=== PATIENT | female | born 1955 | race Caucasian/White ===

== ENCOUNTER 2020-09-14 09:23 | Day surgery (SDC) | payer MEDICARE, SELFPAY ==
[2020-07-30 08:50] VITALS: BMI 21.9
[2020-08-19 08:31] VITALS: BMI 21.9
--- NOTE | 2020-08-26 10:24 | EKG12_ITS ---
Test Reason : PREOP Blood Pressure : / mmHG Vent. Rate : 074 BPM Atrial Rate : 074 BPM P-R Int : 102 ms QRS Dur : 072 ms QT Int : 356 ms P-R-T Axes : 041 043 115 degrees QTc Int : 395 ms Sinus rhythm with short MI Nonspecific ST and T wave abnormality Abnormal ECG Confirmed by ABDULKADIR DEL RIO, COLT ([id number]), scientific publications editor NATALIO VALENZUELA ([id number]) on 08/30/2020 12:44:03 PM Referred By: Hao Grimaldo Confirmed By:COLT PANCHAL MD
[2020-08-26 11:40] LABS: Hematocrit 40.4 % (37-47); Hemoglobin 13.8 g/dL (12.0-15.0); Mean Corp Hgb Conc 34.2 g/dL (32-36); Mean Corpuscular Hgb 30.4 pg (27.0-32.0); Mean Platelet Vol. 8.9 fl (6.2-12.0); Platelet Count 403 K/mm3 (150-450); RBC Distribution Width CV 12.4 % (11.6-14.6); RBC Distribution Width SD 40.8 fl (35.1-43.9); Red Blood Count 4.54 M/mm3 (4.2-5.4); White Blood Count 6.5 K/mm3 (4.4-11.0)
[2020-08-26 12:23] LABS: Thyroid Stim Hormone (TSH) 2.11 uIU/mL (0.358-3.74)
[2020-08-26 13:11] LABS: Anion Gap 6 (5-15); BUN 8 mg/dL (7-18); BUN/Creat Ratio 9.6 RATIO (10-20); Calcium,Total 8.6 mg/dL (8.5-10.1); Chloride 96 mmol/L (98-107); Creatinine, Serum 0.84 mg/dL (0.55-1.02); EST Glomerular Filtration Rate 73 mL/min (>60); Est Glom Filt Rate - Afr Amer 88 mL/min (>60); Glucose 96 mg/dL (74-106); Potassium 4.3 mmol/L (3.5-5.1); Sodium Level 130 mmol/L (136-145)
[2020-09-14] VITALS (8 sets, daily range): BP systolic 84–117; BP diastolic 42–74; PULSE 68–86; RESP 16; TEMP 36.1–36.7; O2SAT 96–100; BMI 21.4
[2020-09-14] MEDS: Lactated Ringers 1,000 ML 100 ML IV (10:15)
--- NOTE | 2020-09-14 10:33 | PCM.HP.BLA ---
History and Physical Date of Admission: 09/14/20 [facility] Visit Reasons: UPDATE H & P SURGERY 09/02 Chief Complaint: Right inguinal hernia [employer] Consultant Required: No Is patient in pain?: No Allergies amoxicillin Adverse Reaction (Mild, Verified 08/19/20 08:31) Diarrhea Medications cholecalciferol (vitamin D3) 25 mcg (1,000 unit) capsule 25 mcg PO DAILY 07/30/20 [History Confirmed 08/19/20] levothyroxine 50 mcg tablet 50 mcg PO DAILY tab 07/30/20 [History Confirmed 08/19/20] sumatriptan succinate 25 mg tablet See Rx Instructions PO .COMPLEX PRN 07/30/20 [History Confirmed 08/19/20] PFSH Medical History Cervical dysplasia Hypothyroid Internal hemorrhoids without mention of complication Mitral valve disorder Osteoporosis Scoliosis Surgical History History of loop electrosurgical excision procedure (LEEP) of cervix Hx of colonoscopy Hx of tonsillectomy Family History Father Arthritis Bladder cancer Brother Arthritis Social History Smoking Status: Never smoker second hand exposure: No alcohol intake: current alcohol intake frequency: a few times a month substance use type: does not use caffeine: Yes what type of physical activity do you participate in: walking and yoga frequency: 3-4 times per week HPI HPI HPI: BEV MARLEY is a 65 F who presents to the office today for an update history and physical for an upcoming elective right inguinal hernia repair. Patient denies recent hospitalizations or illnesses. Patient denies pain currently in the right groin. She recently completed an upper/lower endoscopy with [facility] on 08/06/20. Findings included ascending colon polyp x 2 and stomach biopsy. Pathology demonstrated fragments of tubular adenoma and no diagnostic alteration of the stomach. H pylori negative. It was recommended the patient return in 4-6 months for a repeat colonoscopy secondary to the ascending polyp being very large. Patient denies abdominal pain. Her bowel habits have returned to normal. Patient denies previous abdominal surgeries. Patient's previous history per Dr. Grimaldo: BEV MARLEY is a 65 F who presents to the office today for surgical consultation regarding right inguinal hernia. Patient's primary care physician is Dr. Claude Hernandes and a written copy my surgical consult recommendations will return to him. Very pleasant 65-year-old lady. She is previously been evaluated a couple years ago for a right inguinal hernia. It was reducible at that time. Was asymptomatic. She was seen by . More recently the area has become more symptomatic. She has to lie down to help her reduce and sometimes she has to help manually reduce it. She does not recall any trauma. She otherwise is in good health. She makes comment that next week she will be having a combined upper and lower endoscopy done by [facility]. ROS General General: No weight change, appetite, fatigue, colon cancer, breast cancer or weakness HEENT HEENT: No difficulty swallowing, eye injury, eye surgery, swollen glands or hoarseness Endo Endocrine: Yes thyroid disease; No diabetes mellitus, thyroid cancer, Hair loss, heat intolerance or cold intolerance Skin Skin: No rash or changing moles Musc Musculoskeletal: Yes back problems; No arthritis, rheumatoid arthritis, gout or joint pain Cardio Cardiovascular: No murmur, pacemaker, heart disease, atrial fibrillation, high blood pressure, heart attack, heart stent, palpitations, shortness of breat with exertion or chest pain Additional Details: MVP Psych Psychiatric: No depression, anxiety or hearing voices Resp Respiratory: No shortness of breath, No sleep apnea, No cough, No COPD, No asthma, No emphysema and No wheezing Gastro Gastrointestinal: No abdominal pain, No nausea or vomiting, No diarrhea, No constipation, No blood in stool, No acid reflux, No hemorrhoids, No ulcers, No gallbladder problem and No black,tarry stools Chace Hematologic: No blood thinners, No blood disorders, No bleeding, No anemia and No blood clots Neuro Neurologic: No weakness Exam Const General: cooperative, healthy appearing, comfortable and no acute distress [facility] Head: normal to inspection and no palpable skull fracture Eyes General: appearance normal, both eyes and all related structures Neck Neck: normal visual inspection Neck mass: No Resp Effort & Inspection: normal respiratory effort Auscultation: clear to auscultation bilaterally Cardio Rate: regular rate Rhythm: regular rhythm GI Inspection: normal to inspection Palpation: soft and hernia (right inguinal hernia, reducible ) Auscultation: normal bowel sounds Skin General: no rashes or lesions noted Neuro General: no focal motor deficits and CN's II-XI intact bilaterally Extrem General: normal to inspection Psych Appearance: grossly normal Affect: normal affect Assessment and Plan Assessment and Plan (1) Inguinal hernia of right side without obstruction or gangrene: Status: Acute Plan - Kim BOURNE, PA-C: Dr. Grimaldo will plan to perform a classic Promise right inguinal hernia repair with mesh. Procedure details, risks and benefits have been reviewed. Patient has had the opportunity to ask and have questions answered. Patient verbally understands and agrees with the plan. Coding Level of Care Code No Charge Diagnoses Inguinal hernia of right side without obstruction or gangrene K40.90 I have re-examined the patient. There are no clinical changes since date of exam.
--- NOTE | 2020-09-14 11:09 | DCINST_ITS ---
Discharge Instructions Procedure Hernia Diet Discharge Diet: Light diet - advance as tolerated Activity Discharge Activity: Return to Normal Activity, May Drive (when you are no longer taking narcotic pain medications.) and May Shower (with the bandage in place 1-2 days after surgery.) Lifting Restrictions: 20 pounds for 8 weeks. Additional Activity Instructions:: Climbing stairs is fine, walking is e ncouraged. Sitting in bed may be uncomfortable. Sitting up using your lateral muscles (sitting up sideways) is usually more comfortable. Do not drive, work heavy equipment of sign legal documents for 24 hours. If your hernia repair was an ingunial repair, you may have scrotal swelling, an ice pack and/or athletic support can provide more comfort. Pain medications may cause nausea, you should typically eat light foods as you take your pain medications. Pain medications may also cause constipation. If you have difficulty with this, discuss with your doctor. Dressing / Incision Call your doctor if your incision/area has: Continuous Slow Oozing, Sudden Increased Bleeding, Increased Pain/ Swelling, Increased Redness and Foul Smelling Discharge Call your doctor if you observe: Fever of 101 or Higher Suture Line Care: Avoid Pulling/Pushing and Avoid Pinching/Bending Additional Dressing/Incision Instructions:: Leave the operative bandage on for 2-3 days. When you remove the bandage, leave the steri-strips on place until your follow up appointment or they fall off. Follow Up Care Please Follow Up With: Hao Grimaldo MD When: Call [phone] to make an appointment to be seen in 7 days. Test Results: Test results from this visit will be discussed in further detail at your follow-up appointment, if applicable. Discharge Plan Admission Primary Reason for Your Visit: Right inguinal hernia Attending Provider: Hao Grimaldo Primary Care Provider: Claude Hernandes Consulting Providers: Salazar Arriaza Discharge Orders/Prescriptions Prescriptions: New hydrocodone-acetaminophen 5-325 mg tablet 1 tab PO Q8H PRN (Reason: pain) 2 Days Qty: 6 RF: 0 Continued levothyroxine 50 mcg tablet 50 mcg PO DAILY RF: 0 sumatriptan succinate 25 mg tablet See Rx Instructions PO .COMPLEX PRN (Reason: Headache) RF: 0 cholecalciferol (vitamin D3) 25 mcg (1,000 unit) capsule 25 mcg PO DAILY RF: 0 fluorouracil 5 % cream 1 applic TOPICAL BID PRN (Reason: TOPICAL FOR HANDS) RF: 0 Other Ambulatory Orders: 12 Lead EKG (Routine) Location: None Selected Ordered By: Dr. Hao Grimaldo Referrals / Follow Up: Claude Hernandes MD [Primary Care Provider] - Disposition Disposition (needs filled in before D/C Order can be placed): Home, Self Care
--- NOTE | 2020-09-14 11:30 | HERN_PTH ---
PATIENT: BEV MARLEY LOC: [facility] U#:[id number] AGE/SX: 65/F ROOM: RE09/14/[address]: Dr. Hao Grimaldo MD : 1955 BED: DIS: 09/14/2020 SPEC #: [id number] RECD: 09/14/20 14:34 STATUS: ALEXIA RECole #: [id number] EVANGELISTA: 09/14/20 11:[address]: Hao Grimaldo DEPT: SURGICAL PATHOLOGY RECD BY: Guerita Stroud ENTERED: 09/15/20 08:38 SP TYPE: Hernia OTHR DR: MD Dr. Claude Davis MD Tissues: HERNIA Procedures: Surgery Specimen Level III HEADER OPERATION: Open Promise inguinal hernia with mesh PRE-OP DIAGNOSIS: Inguinal hernia of right side TISSUE SUBMITTED: Round ligament and hernia sac MICROSCOPIC DIAGNOSIS Round ligament and hernia sac, excision: Fragments of benign fibrofatty tissue consistent with hernia sac and ligamentous tissue. AM:marlena 09/16/2020 MICROSCOPIC DESCRIPTION Slides are reviewed. GROSS DESCRIPTION Received in fixative is one container labeled with the patient's name and designated round ligament and hernia sac. The specimen consists of an irregular piece of pink soft tissue measuring 6 x 1 x 0.5 cm. The entire specimen is submitted in two cassettes. / SJ:marlena 09/15/20 TC:5 CPT: 11517
[2020-09-14] MEDS: Bupivacaine Mpf 0.5% 30 ML VIAL (11:55)
[2020-09-14] MEDS: Lidocaine 1% (30 ml sdv) 30 ML Vial (11:55)
--- NOTE | 2020-09-14 11:55 | OP.PCM_ITS ---
Problems Associated Problem List Diagnoses (1) Inguinal hernia of right side without obstruction or gangrene: Report of Operation Date of Procedure: 09/14/20 Pre-Operative Diagnosis: Right inguinal hernia Post-Operative Diagnosis: Direct right inguinal hernia Surgery/Procedure Performed:: Promise right inguinal herniorrhaphy Bard mesh preshaped keyhole 10 x 4.5 cm Lot number [id number]. Reference #[id number]. Expiry date 02/15/2025 Description of Surgical Findings:: Timeout and informed consent was obtained. 65-year-old female was taken to the operating placed supine on the table underwent monitored anesthesia care. Clindamycin 900 g were given intravenously preoperatively. The right groin was sterilely prepped and draped. Ioban draping was used as well. 1% lidocaine mixed 50-50 with 0.5% Marcaine was used as a local anesthetic. A total of 30 cc was used. Local was instilled. A transverse incision was made in the right groin sharp dissection carried down through the subcu tissue the external oblique identified. Further local was instilled. The external oblique was incised in line with his fascia and the ilioinguinal nerve carefully identified and protected. It appeared to branch of the branches were dissected out. Then the round ligament and identified this was dissected free the posterior transversalis fascia was just very weak and easily disrupted. I dissected the round ligament to what I thought was some small amount of peritoneum and indirect inguinal hernia. Placed a Margarita clamp there and then suture ligated that with 0 Vicryl. I resected a portion of the sac/round ligament and tied off the more distal limb with 0 Vicryl. Having dissected free above the pubic tubercle and dissected free the ileal nerve I then repaired the transversalis fascia with a running 3-0 Ethibond. I placed a preshaped keyhole Bard mesh overlying and carefully secured that to the pubic tubercle shelving edge of Poupart's and aponeurosis of the internal/e xternal oblique. Laterally the opening was allowed to incorporate the ileal nerve is the tails were tucked beneath the external oblique laterally. Having achieved that I then approximated the external oblique with a running 3-0 Vicryl. Several interrupted 3-0 Vicryl was used to approximate subcutaneous tissues. The skin edges approximated running septic or 4 Monocryl. Steri- Strips Telfa OpSite dressings applied. Sponge and instrument and needle counts were reported to certainly be correct. Specimen round ligament hernia sac. Drains none. Blood loss minimal. The patient was taken to recovery room in satisfactory addition without apparent complication Hao Grimaldo M.D., F.A.C.S. Surgeon: Hao Grimaldo
== END 2020-09-14 14:14 | disposition home or self-care (01) ==
LOC: SDC 09:24 → AC 09:24
PROVIDERS: Anesthesiology; PCP Family Medicine; Referring Provider Surgery; Visit Provider Surgery
PROC: (CPT 49505; principal; 2020-09-14 11:15)
DX: K40.90 Unilateral inguinal hernia, without obstruction or gangrene, not specified as recurrent (principal); E03.9 Hypothyroidism, unspecified; I05.9 Rheumatic mitral valve disease, unspecified; M81.0 Age-related osteoporosis without current pathological fracture; Z79.899 Other long term (current) drug therapy; Z78.0 Asymptomatic menopausal state
CPT/HCPCS: 00830; 49505; 36415; 80048; 84443; 85027; 88302; 88304; 93005; J7120; C1781; J2405

== ENCOUNTER 2020-12-28 07:56 | Day surgery (SDC) | payer MEDICARE, SELFPAY ==
[2020-12-28 08:32] VITALS: BP 121/76; PULSE 72; RESP 16; TEMP 36.6; O2SAT 100; BMI 21.7
[2020-12-28] MEDS: Lactated Ringers 1,000 ML 100 ML IV (08:36)
--- NOTE | 2020-12-28 08:46 | HP.PCM_ITS ---
HPI - General HPI Narrative BEV MARLEY, is a 65 F who presents for surveillance colonoscopy. Via the [facility] on 08/06/2020 she had a colonoscopy done very large polyp was piecemeal removed it was recommended to her that within a very short period of time 3 to 4 months that she have a follow-up exam. She is not had any abdominal pain no bright red blood per rectum or melena. I have assisted her in the past year with a Promise right inguinal herniorrhaphy. [facility] Medical History (Updated 12/28/20 @ 08:[address] Hao Grimaldo MD) Alcohol use Cervical dysplasia History of echocardiogram History of hiatal hernia History of irregular heartbeat Hx of mitral valve prolapse Hx of scoliosis Hypothyroid Internal hemorrhoids without mention of complication Migraine headache Mitral valve disorder Non-smoker Osteoporosis Post-menopausal Scoliosis Thyroid disease Wears glasses Home Medications cholecalciferol (vitamin D3) 25 mcg (1,000 unit) capsule 25 mcg PO DAILY 07/30/20 [History Last Taken Unknown] levothyroxine 50 mcg tablet 50 mcg PO DAILY tab 07/30/20 [History Last Taken Unknown] sumatriptan succinate 25 mg tablet See Rx Instructions PO .COMPLEX PRN 07/30/20 [History Last Taken Unknown] Allergy/AdvReac Type Severity Reaction Status Date / Time amoxicillin AdvReac Mild Diarrhea Verified 12/27/20 10:45 Family History Father Arthritis Bladder cancer Brother Arthritis Surgical History (Updated 09/23/20 @ 09:23 by Sofie Alanis) History of loop electrosurgical excision procedure (LEEP) of cervix History of right inguinal hernia repair (09/14/20) Hx of colonoscopy Hx of tonsillectomy Social History Smoking Status: Never smoker second hand exposure: No alcohol intake: current alcohol intake frequency: a few times a month substance use type: does not use caffeine: Yes what type of physical activity do you participate in: walking and yoga frequency: 3-4 times per week ROS Constitutional Constitutional: Reports systems reviewed and no addt'l complaints, except as documented Cardiovascular Cardiovascular: Denies chest pain Respiratory/Chest Respiratory/Chest: Denies shortness of breath at rest Gastrointestinal Gastrointestinal: Denies abdominal pain, change in bowel habits, hematochezia or melena Vital Signs Vital Signs Vital Signs: 12/28/20 08:32 Temperature 97.9 F Temperature Source Temporal Pulse Rate 72 Respiratory Rate 16 Respiratory Pattern Normal Blood Pressure 121/76 H Blood Pressure Mean 91 Blood Pressure Source Monitor Blood Pressure Position Semi-Fowlers Blood Pressure Location Right Arm Pulse Ox 100 Oxygen Delivery Method Room Air Weight Weight: 123 lb Body Mass Index (BMI) 21.7 Physical Exam Const alert, oriented x3 and no apparent distress General Appearance: cooperative and comfortable Eyes General Eye: normal appearance of both eyes Neck General: normal visual inspection Chest inspection of chest normal Resp Effort and Inspection: able to speak in complete sentences and symmetric chest movement Auscultation: clear to auscultation bilaterally Cardio regular rate and regular rhythm GI soft to palpation, non-tender and non-distended Extremity no calf tenderness Neuro oriented x3 Psych thought process normal Assessment & Plan Assessment/Plan (1) Personal history of colonic polyps: PLAN: Patient returns via open access with a personal history of colon polyps and piecemeal resection performed at an outside facility with recommendations for follow-up surveillance colonoscopy in 3 to 4 months. She is aware of the technique, benefit, risk, alternatives. We have had an opportunity to ask and have questions answered. We will proceed as noted. Hao Grimaldo M.D., F.A.C.S.
[2020-12-28 09:59] VITALS: BP 104/61; BP 121/76; PULSE 85; RESP 20; TEMP 36.1; O2SAT 100
--- NOTE | 2020-12-28 09:59 | OP.COLON_ITS ---
Patient Name: Kinsey Ivey Procedure Date: 12/28/2020 9:23 AM Date of : 1955 Age: 65 Procedure: Colonoscopy Indications: High risk colon cancer surveillance: Personal history of colonic polyps Providers: Hao Grimaldo MD Medicines: See the Anesthesia note for documentation of the administered medications Patient Profile: Last Colonoscopy: within the past 6 months. Complications: No immediate complications. Procedure: Pre-Anesthesia Assessment: - Prior to the procedure, a History and Physical was performed, and patient medications and allergies were reviewed. The patient's tolerance of previous anesthesia was also reviewed. The risks and benefits of the procedure and the sedation options and risks were discussed with the patient. All questions were answered, and informed consent was obtained. Prior Anticoagulants: The patient has taken no previous anticoagulant or antiplatelet agents. ASA Grade Assessment: II - A patient with mild systemic disease. After reviewing the risks and benefits, the patient was deemed in satisfactory condition to undergo the procedure. After I obtained informed consent, the scope was passed under direct vision. Throughout the procedure, the patient's blood pressure, pulse, and oxygen saturations were monitored continuously. The adult colonoscope was introduced through the anus and advanced to the cecum, identified by appendiceal orifice and ileocecal valve. The colonoscopy was somewhat difficult due to a tortuous colon. The patient tolerated the procedure well. The quality of the bowel preparation was good. The ileocecal valve and the appendiceal orifice were photographed. Scope In: 9:34:51 AM Scope Withdrawal Time 0 hours 7 minutes 2 seconds Scope Out: 9:52:33 AM Total Procedure Duration Time 0 hours 17 minutes 42 seconds Findings: Hemorrhoids were found on perianal exam. Scattered diverticula were found in the entire colon. The colon (entire examined portion) was moderately tortuous. Advancing the scope required using manual pressure. The exam was otherwise without abnormality. Impression: - Hemorrhoids found on perianal exam. - Diverticulosis in the entire examined colon. - Tortuous colon. - The examination was otherwise normal. - No specimens collected. Recommendation: - Discharge patient to home. - Resume previous diet. - Continue present medications. - Repeat colonoscopy in 5 years for surveillance. Procedure Code(s): --- Professional --- 48666, Colonoscopy, flexible; diagnostic, including collection of specimen(s) by brushing or washing, when performed (separate procedure) Diagnosis Code(s): --- Professional --- Z86.010, Personal history of colonic polyps K64.9, Unspecified hemorrhoids K57.30, Diverticulosis of large intestine without perforation or abscess without bleeding Q43.8, Other specified congenital malformations of intestine CPT copyright 2017 [employer]. All rights reserved. The codes documented in this report are preliminary and upon eyeglass cutter review may be revised to meet current compliance requirements. Hao Grimaldo MD 12/28/2020 9:59:23 AM This report has been signed electronically. Number of Addenda: 0 Note Initiated On: 12/28/2020 9:23 AM
--- NOTE | 2020-12-28 10:00 | OP.CCLET_ITS ---
12/28/2020 Claude Hernandes Re : Colonoscopy procedure for Kinsey Ivey Dear Cecilio This procedure was performed on Monday, December 28, 2020. My impressions and recommendations are as follows: Impressions : - Hemorrhoids found on perianal exam. - Diverticulosis in the entire examined colon. - Tortuous colon. - The examination was otherwise normal. - No specimens collected. Recommendations : - Discharge patient to home. - Resume previous diet. - Continue present medications. - Repeat colonoscopy in 5 years for surveillance. My findings are described in the full procedure note, which is enclosed. If I can be of further assistance, please feel free to contact me at Doctor phone number(s): Work: . Sincerely, Hao Grimaldo MD 12/28/2020 9:59:23 AM This report has been signed electronically.
[2020-12-28 10:01] VITALS: BP 100/63; BP 121/76; PULSE 74; RESP 18; O2SAT 100
[2020-12-28 10:09] VITALS: BP 121/76; BP 96/70; PULSE 70; RESP 18; O2SAT 99
[2020-12-28 10:10] VITALS: BP 121/76; BP 91/66; PULSE 67; RESP 20; TEMP 36.1; O2SAT 99
[2020-12-28 10:40] VITALS: BP 121/76
== END 2020-12-28 10:49 ==
LOC: EN 07:57 → AC 07:58
PROVIDERS: PCP Family Medicine; Referring Provider Family Medicine; Visit Provider Surgery
PROC: 0DJD8ZZ Inspection of Lower Intestinal Tract, Via Natural or Artificial Opening Endoscopic (ICD-10-PCS; CPT 45378; principal; 2020-12-28 08:55)
DX: Z12.11 Encounter for screening for malignant neoplasm of colon (principal); K57.30 Diverticulosis of large intestine without perforation or abscess without bleeding; Q43.8 Other specified congenital malformations of intestine; E03.9 Hypothyroidism, unspecified; M81.0 Age-related osteoporosis without current pathological fracture; Z78.0 Asymptomatic menopausal state; Z79.890 Hormone replacement therapy; Z79.899 Other long term (current) drug therapy; Z86.010 Personal history of colon polyps; Z87.19 Personal history of other diseases of the digestive system
CPT/HCPCS: G0105; J7120; J2405